=== PATIENT | male | born 1990 | race Caucasian/White ===

== ENCOUNTER 2020-05-17 20:12 | Emergency (ER) | payer BC, OTHER ==
[2020-05-17] MEDS ORDERED: Lidocaine 1% 20 ML MDV INJECT ONE (20:26)
[2020-05-17] MEDS ORDERED: Lidocaine 1% 20 ML MDV ONE (20:27)
--- NOTE | 2020-05-17 20:30 | EDM.PDOC ---
ED HPI GENERAL MEDICAL PROBLEM - General Chief Complaint: Laceration Stated Complaint: FINGER LACERATION Time Seen by Provider: 05/17/20 20:15 Source of Information: Reports: Patient History Limitations: Reports: No Limitations - History of Present Illness INITIAL COMMENTS - FREE TEXT/NARRATIVE: 29 YO WM PRESENTS TO ER COMPLAINING OF LACERATION TO LEFT INDEX FINGER FROM ACCIDENTALLY STRIKING HIS FINGER WITH A HATCHET. PT WITH 6CM LACERATION TO MCP OF LEFT INDEX FINGER. PT WITHOUT FUNCTIONAL DEFICIT. PT ABLE TO FLEX AND EXTEND FINGER WITHOUT DIFFICULTY. BLEEDING WELL CONTROLLED. Onset: Today Duration: Hour(s): (1) Location: Reports: Upper Extremity, Left Quality: Reports: Ache Severity: Mild Improves with: Reports: Rest Worsens with: Reports: Movement - Related Data Allergies Allergy/AdvReac Type Severity Reaction Status Date / Time No Known Drug Allergies Allergy Cannot Verified 05/17/20 20:15 Remember Home Meds: Home Meds . [No Known Home Meds] 05/17/20 [History] ED ROS GENERAL - Review of Systems Review Of Systems: See Below Constitutional: Reports: No Symptoms HEENT: Reports: No Symptoms Respiratory: Reports: No Symptoms Cardiovascular: Reports: No Symptoms Endocrine: Reports: No Symptoms GI/Abdominal: Reports: No Symptoms : Reports: No Symptoms Musculoskeletal: Reports: No Symptoms Skin: Reports: Wound (6cm laceration to left index finger) Neurological: Reports: No Symptoms Psychiatric: Reports: No Symptoms Hematologic/Lymphatic: Reports: No Symptoms Immunologic: Reports: No Symptoms ED EXAM, SKIN/RASH Exam: See Below Exam Limited By: No Limitations General Appearance: Alert, WD/WN, No Apparent Distress Head: Atraumatic, Normocephalic Neck: Normal Inspection, Supple, Non-Tender, Full Range of Motion Respiratory/Chest: No Respiratory Distress, Lungs Clear, Normal Breath Sounds, No Accessory Muscle Use, Chest Non-Tender Cardiovascular: Normal Peripheral Pulses, Regular Rate, Rhythm, No Edema, No Gal lop, No JVD, No Murmur, No Rub GI/Abdominal: Normal Bowel Sounds, Soft, Non-Tender, No Organomegaly, No Distention, No Abnormal Bruit, No Mass Back Exam: Normal Inspection, Full Range of Motion, NT Extremities: Normal Inspection, Normal Range of Motion, Non-Tender, No Pedal Edema, Normal Capillary Refill Neurological: Alert, Oriented, CN II-XII Intact, Normal Cognition, Normal Gait, Normal Reflexes, No Motor/Sensory Deficits Psychiatric: Normal Affect, Normal Mood Skin: Wound/Incision (6cm laceration to base of left index finger) ED SKIN PROCEDURES - Laceration/Wound Repair Left Digit - 2nd (Index) Appearance: Superficial, Subcutaneous, Clean Distal NVT: Neuro & Vascular Intact Anesthetic Type: Local Local Anesthesia - Lidocaine (Xylocaine): 1% Plain Local Anesthetic Volume: 5cc Skin Prep: Chlorhexidine (Hibiciens), Saline Saline Irrigation (cc's): 30 Exploration/Debridement/Repair: Wound Explored Closed with: Sutures Lac/Wound length In cm: 6 Suture Size: 4-0 # of Sutures: 5 Suture Type: Nylon Sterile Dressing Applied: Provider Tetanus Status Addressed: Yes Complications: No Course - Vital Signs Last Recorded V/S: Last Vital Signs Temp 35.3 C L 05/17/20 20:17 Pulse 105 H 05/17/20 20:17 Resp 18 05/17/20 20:17 BP 132/82 05/17/20 20:17 Pulse Ox 96 05/17/20 20:17 - Orders/Labs/Meds Orders: Active Orders 24 hr Category Date Time Status Fingers Second Digit Lt F1 [CR] Stat Exams 05/17/20 20:16 Ordered Meds: Medications Discontinued Medications Generic Name Dose Route Start Last Admin Trade Name Eve PRN Reason Stop Dose Admin Lidocaine HCl 20 ml 05/17/20 20:26 Xylocaine 1% INJECT 05/17/20 20:27 ONETIME ONE Lidocaine HCl Confirm 05/17/20 20:27 Xylocaine 1% Administered 05/17/20 20:28 Dose 20 ml .ROUTE .STK-MED ONE - Radiology Interpretation Free Text/Narrative:: LEFT INDEX FINGER- NAD Departure - Departure Time of Disposition: 21:11 Disposition: Home, Self-Care 01 Condition: Good Clinical Impression: Laceration of index finger Qualifiers: Encounter type: initial encounter Damage to nail status: without damage Foreign body presence: without foreign body Laterality: left Qualified Code(s): S61.211A - Laceration without foreign body of left index finger without damage to nail, initial encounter - Discharge Information Instructions: Laceration Care, Adult Referrals: PCP,Not In Area [Primary Care Provider] - Jatin Almaguer MD [Ordering Only Provider] - Forms: ED Department Discharge Additional Instructions: 1. DISCHARGE HOME 2. WOUND CARE INSTRUCTIONS GIVEN- RETURN FO SIGNS OF INFECTION 3. FOLLOW UP WITH ORTHO NEEDED OR PCP FOR FURTHER EVALUATION AND TREATMENT 4. RETURN TO ER FOR WORSENING SYMPTOMS 5. SUTURE REMOVED IN 10-14 DAYS Sepsis Event Note (ED) - Evaluation Sepsis Screening Result: No Definite Risk - Focused Exam Vital Signs: Vital Signs Temp Pulse Resp BP Pulse Ox 05/17/20 20:17 35.3 C L 105 H 18 132/82 96 - My Orders Last 24 Hours: My Active Orders 05/17/20 20:16 Fingers Second Digit Lt F1 [CR] Stat - Assessment/Plan Last 24 Hours: My Active Orders 05/17/20 20:16 Fingers Second Digit Lt F1 [CR] Stat Assessment:: 1. 6cm laceration to base of left index finger Plan: 1. DISCHARGE HOME 2. WOUND CARE INSTRUCTIONS GIVEN- RETURN FO SIGNS OF INFECTION 3. FOLLOW UP WITH ORTHO NEEDED OR PCP FOR FURTHER EVALUATION AND TREATMENT 4. RETURN TO ER FOR WORSENING SYMPTOMS 5. SUTURE REMOVED IN 10-14 DAYS
--- NOTE | 2020-05-18 11:04 | CR ---
[id number] RAD/RAD Fingers Left Exam: RAD Fingers Left Indication:LAC TO MCP JOINT Comparison: No prior imaging for comparison. Discussion: Soft tissue laceration along the radial aspect of the 2nd ray at the level of the MCP articulation. No fracture or dislocation. No radiopaque foreign bodies. Impression: As above. Jatin Machuca MD 05/18/20 1104 Thank you for allowing us to participate in the care of your patient.
== END 2020-05-17 21:50 | disposition home or self-care (01) ==
LOC: KA.ED 20:12
DX: S61.211A Laceration without foreign body of left index finger without damage to nail, initial encounter (principal); W22.8XXA Striking against or struck by other objects, initial encounter
CPT/HCPCS: 12002; 73140-F1; 99283-25; J2001